=== PATIENT | female | born 1995 | race Caucasian/White ===

== ENCOUNTER 2017-09-26 05:41 | Day surgery (SDC) | payer OTHER ==
[2017-09-26] MEDS ORDERED: FENTAnyl 50 MCG/ML VIAL (08:17)
[2017-09-26] MEDS ORDERED: MIDAZOLAM 1 MG/ML 2 ML INJ (08:17)
== END 2017-09-26 13:34 | disposition home or self-care (01) ==
LOC: GIL 05:41
DX: K29.70 Gastritis, unspecified, without bleeding (principal)
CPT/HCPCS: 43239; 87081